=== PATIENT | female | born 1980 | race Caucasian/White ===

== ENCOUNTER 2016-05-20 08:32 | Day surgery (SDC) | payer OTHER ==
[2016-05-19 11:04] LABS: HEMOGLOBIN 14.8 g/dL (11.7-16.4)
[2016-05-19 11:41] LABS: ASPARTATE AMINO TRANSFERASE 28 U/L (15-37); BLOOD UREA NITROGEN 13 mg/dL (7-18)
[~2016-05-20] VITALS: Ht 172.7 cm; Wt 81.0 kg
[~2016-05-20 08:32] MED LIST: B12 PO; DOCO100C PO; DOCU-30 PO; FERR325T16 PO; IBUP-1222 PO; PRENATAL PO; [UNRECOGNIZED DRUG - OTHER] PO
[2016-05-20] MEDS ORDERED: LACTATED RINGERS 1,000 ML IV SCH (09:40)
[2016-05-20 09:41] VITALS: BP 106/71
[2016-05-20] MEDS ORDERED: FENTANYL PF 100 MCG/2ML ONE ×2 (09:55→11:20)
[2016-05-20] MEDS ORDERED: BUPIVACAINE LIPOSOME/PF INFIL ONE (10:30)
[2016-05-20] MEDS ORDERED: ROCURONIUM 10 MG/ML ONE (10:32)
[2016-05-20] MEDS ORDERED: DEXAMETHASONE 4 MG/ML, 1ML ONE (10:32)
[2016-05-20] MEDS ORDERED: GLYCOPYRROLATE 0.2MG/1ML ONE (10:32)
[2016-05-20] MEDS ORDERED: NEOSTIGMINE 1 MG/ML, 10ML ONE (10:32)
[2016-05-20] MEDS ORDERED: ONDANSETRON 2MG/ML, 2ML ONE (10:32)
[2016-05-20] MEDS ORDERED: PROPOFOL 10 MG/ML, 20ML ONE (10:32)
[2016-05-20] MEDS ORDERED: OXYcodone 5 MG/5 ML ORAL.SOL UDC PO PRN (11:00)
[2016-05-20] MEDS ORDERED: ONDANSETRON 2MG/ML, 2ML IVPush PRN (11:00)
[2016-05-20] MEDS ORDERED: HYDROmorphone 1 MG/ML, 1ML IV PRN (11:00)
[2016-05-20] MEDS ORDERED: OXYcodone 5 MG/5 ML ORAL.SOL UDC ONE (11:20)
[2016-05-20] MEDS: FENTANYL PF 100 MCG/2ML IV PRN ×2 (11:22→11:28)
== END 2016-05-20 15:10 ==
LOC: OUT 08:32
PROVIDERS: ATTEND Surgery
DX: K60.2 Anal fissure, unspecified (principal); K64.4 Residual hemorrhoidal skin tags; Z72.89 Other problems related to lifestyle
CPT/HCPCS: 36415; 46200; 80053; 85025; 88304; C9290; J1100; J2405; J2704; J2710; J3010; J3490

== ENCOUNTER 2018-08-02 18:58 | Inpatient (IN) | payer BC, OTHER ==
[~2018-08-02] VITALS: Ht 172.7 cm; Wt 88.0 kg
[~2018-08-02 18:58] MED LIST changes: +DOCU-131 PO; -DOCU-30 PO
[2018-08-02] MEDS ORDERED: NEWBORN KIT ONE (19:12)
[2018-08-02] MEDS ORDERED: OXYTOCIN 30U/ 0.9% NaCL 500ML 500 ML ONE (19:12)
[2018-08-02] MEDS ORDERED: LACTATED RINGERS 1,000 ML IV SCH (19:14)
[2018-08-02] MEDS ORDERED: D5%-LACTATED RINGERS 1,000 ML IV SCH (19:14)
[2018-08-02] MEDS ORDERED: AMPICILLIN 2 GM in SODIUM CHLORIDE 0.9% 100 ML IVPB STA (19:14)
[2018-08-02] MEDS ORDERED: OXYTOCIN 30U/ 0.9% NaCL 500ML 500 ML IV ONE (19:14)
[2018-08-02] MEDS ORDERED: ONDANSETRON 2MG/ML, 2ML IVPush PRN (19:30)
[2018-08-02] MEDS ORDERED: FENTANYL PF 100 MCG/2ML IVPush PRN (19:30)
[2018-08-02] MEDS ORDERED: TERBUTALINE 1 MG/ML, 1ML IVPush PRN (19:30)
[2018-08-02] MEDS ORDERED: FENTANYL PF 100 MCG/2ML IV PRN (19:30)
[2018-08-02] MEDS ORDERED: CALCIUM CARBONATE 500 MG TAB.CHEW PO PRN (19:30)
[2018-08-02 19:38] LABS: BASOPHILS # (AUTO) 0.01 x10^3/uL (0-0.1); BASOPHILS % (AUTO) 0 % (0-1); EOSINOPHILS # (AUTO) 0.07 x10^3/uL (0-0.4); EOSINOPHILS % (AUTO) 1 % (1-7); LYMPHOCYTES # (AUTO) 1.45 x10^3/uL (1-3.4); LYMPHOCYTES % (AUTO) 23 % (22-44); MD NO; MEAN CORPUSCULAR HEMOGLOBIN 31.7 pg (27.0-34.8); MEAN CORPUSCULAR HGB CONC 34.4 g/dL (32.4-35.8); MEAN CORPUSCULAR VOLUME 92.3 fL (80-100); MONOCYTES % (AUTO) 8 % (2-9); NEUTROPHILS # (AUTO) 4.38 x10^3/uL (1.8-6.8); NEUTROPHILS % (AUTO) 68 % (42-75); PLATELET COUNT 216 x10^3/uL (130-400); RED BLOOD COUNT 3.99 x10^6/uL (3.82-5.3); RED CELL DISTRIBUTION WIDTH 13.1 % (9.6-15.2)
[2018-08-02] MEDS ORDERED: IBUPROFEN 600 MG TABLET ONE (21:34)
[2018-08-02] MEDS ORDERED: IBUPROFEN 200 MG TABLET PO PRN (22:00)
[2018-08-02] MEDS ORDERED: OXYTOCIN 30U/ 0.9% NaCL 500ML 500 ML IV PRN (22:00)
[2018-08-02 22:50] VITALS: BP 111/71
[2018-08-03] MEDS ORDERED: HYDROcodone/APAP 5/325 TABLET PO PRN
[2018-08-03] MEDS ORDERED: OXYcodone/APAP 5/325MG TABLET PO PRN
[2018-08-03] MEDS ORDERED: DOCUSATE 100 MG CAPSULE PO PRN
[2018-08-03] MEDS ORDERED: MISOPROSTOL 200 MCG TABLET PR PRN
[2018-08-03] MEDS ORDERED: ONDANSETRON 2MG/ML, 2ML IV PRN
[2018-08-03] MEDS ORDERED: AMPICILLIN 1 GM in SODIUM CHLORIDE 0.9% 100 ML IVPB SCH
[2018-08-03] MEDS ORDERED: CALCIUM CARBONATE 500 MG TAB.CHEW PO PRN (02:00)
[2018-08-03 04:14] VITALS: BP 124/73
[2018-08-03 05:34] LABS: BASOPHILS # (AUTO) 0.03 x10^3/uL (0-0.1); BASOPHILS % (AUTO) 0 % (0-1); EOSINOPHILS # (AUTO) 0.01 x10^3/uL (0-0.4); EOSINOPHILS % (AUTO) 0 % (1-7); LYMPHOCYTES # (AUTO) 1.25 x10^3/uL (1-3.4); LYMPHOCYTES % (AUTO) 15 % (22-44); MD NO; MEAN CORPUSCULAR HEMOGLOBIN 32.1 pg (27.0-34.8); MEAN CORPUSCULAR HGB CONC 34.4 g/dL (32.4-35.8); MEAN CORPUSCULAR VOLUME 93.3 fL (80-100); MEAN PLATELET VOLUME 9.1 fL (7.4-10.4); MONOCYTES # (AUTO) 0.49 x10^3/uL (0.2-0.8); MONOCYTES % (AUTO) 6 % (2-9); NEUTROPHILS # (AUTO) 6.47 x10^3/uL (1.8-6.8); NEUTROPHILS % (AUTO) 79 % (42-75); PLATELET COUNT 204 x10^3/uL (130-400); RED BLOOD COUNT 3.49 x10^6/uL (3.82-5.3); RED CELL DISTRIBUTION WIDTH 13.4 % (9.6-15.2)
[2018-08-03 08:15] VITALS: BP 103/65
[2018-08-03] MEDS: PRENATAL VIT/IRON/FA 1 EACH TABLET PO SCH (08:28)
[2018-08-03] MEDS: OXYTOCIN 30U/ 0.9% NaCL 500ML 500 ML IV SCH ×2 (10:00)
[2018-08-03] MEDS ORDERED: IBUPROFEN 600 MG TABLET ONE (10:45)
[2018-08-03 12:42] VITALS: BP 111/43
[2018-08-03 16:00] VITALS: BP 120/73
[2018-08-03] MEDS: IBUPROFEN 600 MG TABLET PO PRN (19:07)
[2018-08-03 20:00] VITALS: BP 109/79
[2018-08-04] MEDS: IBUPROFEN 600 MG TABLET PO PRN ×2 (02:22→08:59)
[2018-08-04 08:15] VITALS: BP 117/76
[2018-08-04] MEDS: PRENATAL VIT/IRON/FA 1 EACH TABLET PO SCH (08:59)
== END 2018-08-04 16:00 | disposition home or self-care (01) | DRG 807 ==
LOC: LDOP 18:58 → LDIP 19:14 → 2NW 22:39
PROVIDERS: ADMIT Obstetrics & Gynecology; ATTEND Obstetrics & Gynecology
PROC: 10E0XZZ Delivery of Products of Conception, External Approach (ICD-10-PCS; principal; 2018-08-02)
PROC: 0KQM0ZZ Repair Perineum Muscle, Open Approach (ICD-10-PCS; 2018-08-02)
DX: O24.429 Gestational diabetes mellitus in childbirth, unspecified control (principal); Z37.0 Single live birth; O99.824 Streptococcus B carrier state complicating childbirth; Z3A.36 36 weeks gestation of pregnancy; Z83.3 Family history of diabetes mellitus; O69.81X0 Labor and delivery complicated by cord around neck, without compression, not applicable or unspecified; O70.1 Second degree perineal laceration during delivery
CPT/HCPCS: 36415; 82962; 85025; 85461; 86850; 86900; G0378; J0290; J2590; J7120